=== PATIENT | male | born 1965 | race African-American/Black ===

== ENCOUNTER 2017-10-17 07:58 | Emergency (ER) | payer OTHER ==
[~2017-10-17] VITALS: Ht 193 cm; Wt 103.0 kg
[2017-10-17] MEDS ORDERED: KETOROLAC 30MG/ML VIAL IM ONE (12:00)
[2017-10-17] MEDS ORDERED: ACETAMINOPHEN WITH CODEINE 300/30MG TABLET PO ONE (12:00)
[2017-10-17 12:04] VITALS: BP 161/112
== END 2017-10-17 13:11 | disposition home or self-care (01) ==
LOC: ER 07:58
DX: S39.012A Strain of muscle, fascia and tendon of lower back, initial encounter (principal); F17.200 Nicotine dependence, unspecified, uncomplicated; X58.XXXA Exposure to other specified factors, initial encounter; Y93.89 Activity, other specified; Y92.89 Other specified places as the place of occurrence of the external cause; Y99.0 Civilian activity done for income or pay
CPT/HCPCS: 96372; 99283; J1885

== ENCOUNTER 2017-10-18 09:12 | Emergency (ER) | payer OTHER ==
[~2017-10-18] VITALS: Ht 193 cm; Wt 102.0 kg
[2017-10-18] MEDS ORDERED: KETOROLAC 60MG/2ML VIAL IM ONE (10:30)
[2017-10-18] MEDS ORDERED: HYDROCODONE/ACETAMINOPHEN 5/325MG TABLET PO ONE (12:15)
[2017-10-18 13:28] VITALS: BP 138/88
== END 2017-10-18 13:30 | disposition home or self-care (01) ==
LOC: ER 09:12
DX: M54.5 Low back pain (principal); R26.2 Difficulty in walking, not elsewhere classified; F17.210 Nicotine dependence, cigarettes, uncomplicated
CPT/HCPCS: 72110; 96372; 99284; J1885